=== PATIENT | male | born 1995 | race American Indian/Alaskan Native ===

== ENCOUNTER 2021-05-26 02:08 | Emergency (ER) | payer BC ==
[2021-05-26 02:19] VITALS: BP 145/93
== END 2021-05-27 04:00 | disposition left against medical advice (07) ==
LOC: ED 02:08
DX: R53.1 Weakness (principal); R42 Dizziness and giddiness; Z53.21 Procedure and treatment not carried out due to patient leaving prior to being seen by health care provider
CPT/HCPCS: 82962